=== PATIENT | male | born 1955 | race Caucasian/White ===

== ENCOUNTER → 2023-12-13 08:55 | Outpatient (REF) | payer MEDICARE, OTHER, SELFPAY ==
[2023-12-13 13:26] LABS: ALT (SGPT) 20 U/L (0-50); AST (SGOT) 30 U/L (17-59); Albumin 4.7 g/dl (3.5-5.0); Alkaline Phosphatase 50 U/L (38-126); Direct Bilirubin 0.3 mg/dl (0.0-0.4); HDL Cholesterol 89 mg/dl; LDL Cholesterol, Calculated 119 mg/dl; Total Bilirubin 1.2 mg/dl (0.2-1.3); Total Cholesterol 228 mg/dl (50-199); Triglyceride 101 mg/dl (10-149); Very Low Density Lipoprotein 20 mg/dl (0-30)
[2023-12-13 13:42] LABS: TSH 1.81 uIU/ml (0.47-4.68)
== END ==
LOC: HWLAB 08:55
PROVIDERS: ATTENDING PHYSICIAN Internal Medicine Cardiovascular Disease; FAMILY PHYSICIAN Internal Medicine
DX: I45.10 Unspecified right bundle-branch block (principal); Z82.49 Family history of ischemic heart disease and other diseases of the circulatory system
CPT/HCPCS: 36415; 80061; 80076; 84443

== ENCOUNTER → 2025-01-24 09:48 | Outpatient (REF) | payer MEDICARE, OTHER, SELFPAY ==
[2025-01-24 10:59] LABS: AST (SGOT) 38 U/L (17-59); Albumin 4.6 g/dl (3.5-5.0); HDL Cholesterol 108 mg/dl; LDL Cholesterol, Calculated 56 mg/dl; Total Protein 7.6 g/dl (6.3-8.2); Very Low Density Lipoprotein 17 mg/dl (0-30)
[2025-01-24 11:11] LABS: ALT (SGPT) 33 U/L (0-50); Alkaline Phosphatase 44 U/L (38-126)
== END ==
LOC: REG 09:48
PROVIDERS: ATTENDING PHYSICIAN Internal Medicine Cardiovascular Disease; FAMILY PHYSICIAN Internal Medicine
DX: E78.5 Hyperlipidemia, unspecified (principal); Z82.49 Family history of ischemic heart disease and other diseases of the circulatory system
CPT/HCPCS: 36415; 80061; 80076

== ENCOUNTER → 2025-02-19 14:51 | Outpatient (REF) | payer MEDICARE, OTHER, SELFPAY | LOC: HWRCS 14:51 | PROVIDERS: ATTENDING PHYSICIAN Internal Medicine Cardiovascular Disease; FAMILY PHYSICIAN Internal Medicine | DX: R00.1 Bradycardia, unspecified (principal); E78.5 Hyperlipidemia, unspecified; Z82.49 Family history of ischemic heart disease and other diseases of the circulatory system | CPT/HCPCS: 93306 ==